=== PATIENT | male | born 1965 | race Caucasian/White ===

== ENCOUNTER 2018-08-18 12:31 | Outpatient (CLI) | payer OTHER | END 2018-08-18 17:00 | disposition home or self-care (01) | LOC: RAD 12:31 | DX: Z00.00 Encounter for general adult medical examination without abnormal findings (principal) ==

== ENCOUNTER 2020-12-28 19:01 | Emergency (ER) | payer OTHER ==
[~2020-12-28] VITALS: Ht 190.5 cm; Wt 186.0 kg
== END 2020-12-29 00:13 | disposition home or self-care (01) ==
LOC: ER 19:01
DX: S80.02XA Contusion of left knee, initial encounter (principal); S40.011A Contusion of right shoulder, initial encounter; W18.39XA Other fall on same level, initial encounter; Y93.89 Activity, other specified; Y92.69 Other specified industrial and construction area as the place of occurrence of the external cause; Y99.8 Other external cause status